=== PATIENT | female | born 1965 | race African-American/Black ===

== ENCOUNTER 2020-02-20 12:06 | Emergency (ER) | payer OTHER ==
[~2020-02-20] VITALS: Ht 172.7 cm; Wt 77.1 kg
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
[2020-02-20] MEDS ORDERED: Haloperidol 5mg/ml Inj IM ONE (12:15)
[2020-02-20] MEDS ORDERED: Ketorolac 30mg Inj IV ONE (12:30)
[2020-02-20] MEDS ORDERED: Morphine Sulfate 2mg/ml Inj(IV/IM USE ONLY) IM ONE (12:30)
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
[2020-02-20 13:05] LABS: BASOPHILS % (AUTO) 3.3 % (0.0-2.0); EOSINOPHILS % (AUTO) 0.5 % (0.0-3.0); HEMATOCRIT 36.9 % (37.0-47.0); HEMOGLOBIN 11.6 G/DL (12.0-16.0); LYMPHOCYTES % (AUTO) 19.9 % (20.0-45.0); MEAN CORPUSCULAR VOLUME 87 FL (80-99); MONOCYTES % (AUTO) 7.9 % (1.0-10.0); NEUTROPHILS % (AUTO) 68.4 % (45.0-75.0); PLATELET COUNT 230 K/UL (150-450); RED BLOOD COUNT 4.26 M/UL (4.20-5.40); RED CELL DISTRIBUTION WIDTH 14.3 % (11.6-14.8); WHITE BLOOD COUNT 6.6 K/UL (4.8-10.8)
[2020-02-20 13:06] LABS: ANION GAP 9 mmol/L (5-15); BLOOD UREA NITROGEN 6 mg/dL (7-18); CALCIUM 8.6 MG/DL (8.5-10.1); CARBON DIOXIDE 24 MMOL/L (21-32); CHLORIDE 104 MMOL/L (98-107); CREATININE 0.8 MG/DL (0.55-1.30); POTASSIUM 4.2 MMOL/L (3.5-5.1); SODIUM 137 MMOL/L (136-145)
[2020-02-20 13:17] LABS: APPEARANCE,URINE CLOUDY; BILIRUBIN, URINE NEGATIVE (NEGATIVE); COLOR,URINE BROWN; GLUCOSE, URINE (UA) NEGATIVE (NEGATIVE); KETONES,URINE NEGATIVE (NEGATIVE); LEUKOCYTE ESTERASE ,URINE NEGATIVE (NEGATIVE); NITRITE,URINE POSITIVE (NEGATIVE); PH,URINE 6 (4.5-8.0); PROTEIN,URINE NEGATIVE (NEGATIVE); UROBILINOGEN,URINE 8 MG/DL (0.0-1.0)
[2020-02-20 13:19] LABS: ALANINE AMINOTRANSFERASE 21 U/L (12-78); ALBUMIN 3.5 G/DL (3.4-5.0); ALBUMIN/GLOBULIN RATIO 0.9 (1.0-2.7); ALKALINE PHOSPHATASE 76 U/L (46-116); ASPARTATE AMINO TRANSFERASE 31 U/L (15-37); BILIRUBIN,TOTAL 0.6 MG/DL (0.2-1.0)
--- NOTE | 2020-02-20 13:22 | NUR ---
ED Nurse Note: xray at pt bedside
--- NOTE | 2020-02-20 13:44 | Diagnostic Imaging Report ---
FILM LEFT KNEE HISTORY: Trauma TECHNIQUE: Left knee 3 views COMPARISON: None FINDINGS: Soft tissue swelling with joint space narrowing and sclerosis and osteophytosis along with chronic appearing soft tissue calcifications. Retropatellar joint effusion demonstrated. Subtle lucencies noted of the inferior patella. IMPRESSION: Nondisplaced fracture of the inferior patella. Severe degenerative changes with soft tissue swelling and joint effusion.
[2020-02-20] MEDS ORDERED: cefTRIAXone 1 GM in NS 55 ML IVPB ONE (13:45)
--- NOTE | 2020-02-20 13:59 | Diagnostic Imaging Report ---
FILM LEFT TIB/FIB HISTORY: Trauma TECHNIQUE: 3 films left tibia and fibula COMPARISON: None FINDINGS: Degeneration of the left knee with joint space narrowing, sclerosis and osteophytosis. Fracture of the inferior patella with joint effusion. The tibia and fibula appear intact. Narrowing of the tarsal joints noted. There is a subtle lucency at the base of the fifth metatarsal. IMPRESSION: Degenerative changes are present with fracture of the inferior patella. Additional fracture of the proximal fifth metatarsal.
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
[2020-02-20] MEDS ORDERED: IBUPROFEN600 M1 ORAL (15:27)
[2020-02-20] MEDS ORDERED: TYLENOL325 MG ORAL (15:27)
[2020-02-20] MEDS ORDERED: NITROFURANTOIN100 M2 ORAL (15:28)
[2020-02-20 16:50] VITALS: BP 100/60
--- NOTE | 2020-02-20 16:50 | NUR ---
ER DISCHARGE NOTE: Patient is cleared to be discharged per ERMD, pt is aox4, on room air, with stable vital signs. pt was given dc, prescription and f/u instructions, pt was able to verbalize understanding, pt id band and iv site removed without complications. pt provided with disk copy of imaging and sandwich and juice. LLE placed in knee brace and pt was given instruction on crutch use. pt was able to verbalize understanding of teachings. pt took all belongings and was provided with printout directions to [employer] [facility] as requested.
--- NOTE | 2020-02-20 17:37 | Diagnostic Imaging Report ---
US VENOUS BILATERAL LOWER EXTREMITIES INDICATION: DVT bilateral lower extremity swelling and pain TECHNIQUE: Real-time sonographic imaging of the bilateral common femoral, superficial femoral and popliteal veins is performed utilizing intermittent compression. The study is supplemented with color flow imaging and duplex Doppler during spontaneous flow, Valsalva and calf augmentation. COMPARISON: None FINDINGS: Normal compressibility is demonstrated from the common femoral vein to the popliteal vein bilaterally. There is normal response to Valsalva and augmentation. Normal spontaneous phasic flow is noted. IMPRESSION: No evidence of deep venous thrombosis.
== END 2020-02-20 16:50 | disposition short-term general hospital (02) ==
LOC: EDUNIT# 12:06 → EDBD 12:06 → EMR 12:20
DX: S82.002A Unspecified fracture of left patella, initial encounter for closed fracture (principal); N30.00 Acute cystitis without hematuria; F19.10 Other psychoactive substance abuse, uncomplicated; W19.XXXA Unspecified fall, initial encounter; Y92.521 Bus station as the place of occurrence of the external cause; F17.200 Nicotine dependence, unspecified, uncomplicated; S92.352A Displaced fracture of fifth metatarsal bone, left foot, initial encounter for closed fracture
CPT/HCPCS: 36415; 71045; 73562; 73590; 80053; 80307; 81001; 83880; 84550; 85025; 85610; 85730; 86140; 87086; 87181; 93005; 93970; 96365; 96372; 96375; J0696; J1885; J2270; Z7502; 99284